=== PATIENT | female | born 1965 | race African-American/Black ===

== ENCOUNTER 2023-04-14 00:22 | Emergency (ER) | payer OTHER ==
[2023-04-14 00:29] VITALS: BP 179/96; PULSE 98; RESP 20; TEMP 99.3; BMI 30.9
[2023-04-14] MEDS ORDERED: KETOROLAC TROMETHAMINE 30 MG/1 ML VIAL IM ONE (01:21)
[2023-04-14] MEDS ORDERED: KETOROLAC TROMETHAMINE 30 MG/1 ML VIAL ONE (01:24)
== END 2023-04-14 02:21 | disposition home or self-care (01) ==
LOC: JER 00:22
PROC: 3E0233Z Introduction of Anti-inflammatory into Muscle, Percutaneous Approach (ICD-10-PCS; principal; 2023-04-14)
DX: K08.89 Other specified disorders of teeth and supporting structures (principal)
CPT/HCPCS: 99284-25

== ENCOUNTER 2023-05-30 16:00 | Emergency (ER) | payer OTHER ==
[2023-05-30 16:16] VITALS: TEMP 98; BMI 33.8
[2023-05-30] MEDS ORDERED: IBUPROFEN 600 MG TABLET (FP) PO ONE (17:17)
[2023-05-30] MEDS: IBUPROFEN 600 MG TABLET (FP) PO ONE (17:21)
[2023-05-30 19:44] LABS: BASO % 0.6 % (0-2.0); EOS % 1.5 % (0-4.5); HEMATOCRIT 36.9 % (32.4-45.2); HEMOGLOBIN 12.6 GM/dL (10.7-15.3); LYMPH % 31.2 % (8-40); MCH 30.4 pg (25.7-33.7); MCHC 34.1 g/dl (32.0-36.0); MEAN CELL VOLUME 89.4 fl (80-96); MEAN PLT VOLUME 6.6 fl (7.5-11.1); MONO % 8.2 % (3.8-10.2); NEUT % 58.5 % (42.8-82.8); PLATELET COUNT 365 10^3/uL (134-434); RBC 4.13 M/mm3 (3.60-5.2); RDW 12.8 % (11.6-15.6); WHITE BLOOD COUNT 7.4 K/mm3 (4.0-10.0)
[2023-05-30 20:24] LABS: POTASSIUM 4.4 mmol/L (3.5-5.1)
[2023-05-30 20:27] LABS: ALBUMIN 3.3 g/dl (3.4-5.0); BLOOD UREA NITROGEN 6.8 mg/dL (7-18); CALCIUM 8.8 mg/dL (8.5-10.1)
[2023-05-30 20:30] LABS: CREATININE 0.9 mg/dL (0.55-1.3)
[2023-05-30 20:32] LABS: BILIRUBIN,TOTAL 0.3 mg/dL (0.2-1); TOT PROT 7.6 g/dl (6.4-8.2)
[2023-05-30] MEDS ORDERED: CLINDAMYCIN HCL 150 MG CAPSULE (FP) ONE (23:28)
[2023-05-30] MEDS: CLINDAMYCIN HCL 150 MG CAPSULE (FP) PO ONE (23:33)
[2023-05-30 23:55] VITALS: BP 124/78; PULSE 79; RESP 16
== END 2023-05-31 00:13 | disposition home or self-care (01) ==
LOC: JER 16:00 → JERFT 16:00
DX: K04.7 Periapical abscess without sinus (principal); K08.89 Other specified disorders of teeth and supporting structures; R22.0 Localized swelling, mass and lump, head
CPT/HCPCS: 36415; 70487-TC; 80053; 85025; 99285-25

== ENCOUNTER 2024-01-11 06:50 | Day surgery (SDC) | payer OTHER ==
[2024-01-09 15:03] VITALS: BMI 32.9
[2024-01-11] MEDS ORDERED: PROPOFOL 160 ML ONE (07:42)
[2024-01-11 08:38] VITALS: TEMP 98
[2024-01-11 08:49] VITALS: BP 112/60; PULSE 88; RESP 19
== END 2024-01-11 08:55 | disposition home or self-care (01) ==
LOC: FASU-ENDO 06:50
PROVIDERS: ATTEND Internal Medicine Gastroenterology
PROC: 0DJD8ZZ Inspection of Lower Intestinal Tract, Via Natural or Artificial Opening Endoscopic (ICD-10-PCS; principal; 2024-01-11 08:14)
DX: Z12.11 Encounter for screening for malignant neoplasm of colon (principal); Z80.0 Family history of malignant neoplasm of digestive organs